=== PATIENT | female | born 1990 | race Caucasian/White ===

== ENCOUNTER 2017-02-13 15:25 | Emergency (ER) | payer BC ==
[2017-02-13 16:44] LABS: BLOOD, URINE MOD (NEG); COMMENT (UR) CULT NOT INDICATED; CULTURE IF INDICATED CULT NOT INDICATED; GLUCOSE,URINE NEG (NEG); KETONE, URINE NEG (NEG); MUCUS URINE FEW /lpf (OCC); NITRITE,URINE NEG (NEG); SQUAMOUS EPITHELIAL CELL URINE <1 /hpf (0-5); URINE COLOR LIGHT-YELLOW (YELLW/STRAW)
[2017-02-13 16:57] LABS: AMPHETAMINE, URINE NEG (NEG); BARBITURATES, URINE NEG (NEG); COCAINE, URINE NEG (NEG)
[2017-02-13] MEDS ORDERED: MEPERIDINE HCL 50 MG TAB PO PRN (17:00)
[2017-02-13] MEDS ORDERED: MEPERIDINE HCL 50 MG/ML VIAL IM ONE (17:00)
[2017-02-13] MEDS ORDERED: PROMETHAZINE INJ 25 MG/ML VIAL IM ONE (17:00)
--- NOTE | 2017-02-13 17:11 | PD ---
HPI Chief Complaint Left back pain Date Seen: Feb 13, 2017 Travel History International Travel<30 Days: No Contact w/Intl Traveler<30Days: No Known Affected Area: No History of Present Illness HPI Patient 26-year-old white female with 22 weeks with twins who is here on vacation from [place] and has developed left-sided severe back pain over the last 24 hours, she denies vaginal bleeding or leakage of fluid or contractions. Babies are very active. She states that she's had some pressure when she urinated over the last couple of days burning or pain per se, and she saw a little pink on the toilet paper when she wiped once. She has no history of kidney stones and kidney disease bladder infections though in her family there are kidney stones Para: 0 : 1 History Obstetric History Obstetric History with twins at 22 weeks now Social History Alcohol Use: No Tobacco Use: No Substance Abuse: No Allergies-Medications (Allergen,Severity, Reaction): Coded Allergies: Codeine (Verified Allergy, Severe, 02/13/17) Review of Systems General / Constitutional: No: Fever, Weight Gain, Chills, Other Eyes: No: Diploplia, Blurred Vision, Visual changes, Pain, Photophobia HENT: No: Headaches, Vertigo, Lightheadedness Cardiovascular: No: Irregular Rhythm, Chest Pain or Discomfort, Palpitations, Tachycardia, Syncope, Varicosities, Edema, Cyanosis Respiratory: No: Cough, Short of Breath, Other Gastrointestinal: No: Nausea, Vomiting, Diarrhea Genitourinary: Urgency, No: Decreased Urinary Output, Oliguria Musculoskeletal: Other, No: Limited ROM, Weakness, Cramping, Edema, Pain Skin: No Rash, No Itching, No Dryness, No Lumps, No Change in Pigmentation, No Change in Nails, No Alopecia, No Lesions Neurologic: No: Weakness, Dizziness, Syncope, Focal Abnormalities, Coordination Problem, Headache, Slurred Speech, Seizures Psychiatric: No: Depression, Suicidal Ideations, Homicidal Ideation Endocrine: No: Heat Intolerance, Cold Intolerance, Polydipsia, Polyuria, Other Physical Exam Narrative GENERAL: Well-nourished, well-developed patient. SKIN: Warm and dry. HEAD: Normocephalic and atraumatic. EYES: No scleral icterus. No injection or drainage. ENT: No nasal drainage noted. Mucous membranes pink. Airway patent. NECK: Supple, trachea midline. No JVD. CARDIOVASCULAR: Regular rate and rhythm without murmurs, gallops, or rubs. RESPIRATORY: Breath sounds equal bilaterally. No accessory muscle use. BREASTS: Bilateral exam showed no masses , no retractions, no nipple discharge. ABDOMEN/GI: Abdomen soft, minimally tender, bowel sounds present, no rebound, no guarding Gravid to [26-] weeks size Fundal Height: [26-] GENITOURINARY: External Genitalia: intact and normal in appearance BUS glands: [-] Cervix: [Closed-] Dilatation: [-Closed] Effacement: [-] Thick Station: [-] High Presentation: [-] Vertex vertex twins by ultrasound Membranes: [intact ] Uterine Contractions: [none-] FHT's: 135/140 EXTREMITIES: No cyanosis or edema. BACK: Nontender without obvious deformity. + L CVA tenderness. NEUROLOGICAL: Awake and alert. Motor and sensory grossly within normal limits. Five out of 5 muscle strength in all muscle groups. Normal speech. Data Data Orders Vital Signs (Adult) .ON ADMISSION (02/13/17 15:45) ^ Labor Status (02/13/17 15:45) Urinalysis - C+S If Indicated (02/13/17 15:45) Ob/Psych Drug Screen, Urine (02/13/17 15:45) Ob Poc Ultrasound (02/13/17 ) Meperidine Inj (Demerol Inj) (02/13/17 17:00) Promethazine Inj (Phenergan Inj) (02/13/17 17:00) Meperidine (Demerol) (02/13/17 17:00) Labs Bedside ultrasound done showing a twin gestation twin A is back down transverse 22 week 3 day size 487 g normal amniotic fluid with intervening membrane seen and photographed normal anatomy scan on twin A , twin B is 22 week 3 day size male, 497 g normal amniotic fluid, there is 2 placentas 1 anterior one posterior , cardiac motion of both babies within normal limits Laboratory Tests Test 02/13/17 15:35 Urine Color LIGHT-YELLOW Urine Turbidity CLEAR Urine pH 7.0 Urine Specific [place] 1.005 Urine Protein NEG Urine Glucose (UA) NEG Urine Ketones NEG Urine Occult Blood MOD Urine Nitrite NEG Urine Bilirubin NEG Urine Urobilinogen LESS THAN 2.0 Urine Leukocyte Esterase NEG Urine RBC 3 Urine WBC 3 Urine Squamous Epithelial <1 Cells Urine Mucus FEW Microscopic Urinalysis Comment CULT NOT INDICATED MDM Interpretation(s) This patient is 26-year-old white female at 22 weeks who is here on vacation from [place] and was planning to fly back home this afternoon when she developed left-sided back pain the approximately 24 hours ago, this is worsened over the last half-day and the presents for evaluation. Patient denies bleeding or leakage of fluid or contractions. On the monitor of there are no contractions noted. Ultrasound babies are within normal limits both babies concordant size, 2 placentas 1 anterior one posterior normal fluid volume and an and positive intervening membrane, normal anatomy scan on both babies and normal heart rates. Patient's exam cervix is closed high and thick, she is positive left-sided CVA tenderness none on the right, urinalysis positive for moderate blood but otherwise negative ., negative for infection, therefore patient likely has a small kidney stone she's tried to pass Plan Plan to give the patient the option to stay in the hospital for inpatient care and pain meds IV fluid etc. she would rather go home if possible and was given that option. We will give her IM Demerol Phenergan 50 mg 25 mg and oral Demerol 50 mg to use every 3-4 hours when necessary at home, she can use Tylenol as well. She needs to increase oral fluids to try to flush her system and bladder, bedrest and not to fly back to [place] today, she is to return if symptoms worsen or she begins to have fever at that time would diagnose her with pyelonephritis and treated accordingly Diagnosis Diagnosis: Primary Impression: Renal calculus, left Additional Impressions: Back pain affecting in second trimester Twin gestation in second trimester Disposition: 01 DISCHARGE HOME Condition: Stable Zhang Meyers II, MD Feb 13, 2017 17:11
[2017-02-18 09:50] LABS: BATH SALTS (MDPV) UR NEG (NEG); ECSTASY (MDMA) UR NEG (NEG); GABAPENTIN UR NEG (NEG); HEROIN (6-ACETYLMORPHINE) UR NEG (NEG); HYDROMORPHONE U NEG (NEG); K2 SPICE UR NEG (NEG); OBMETHADONE UR NEG (NEG); OXYCODONE (PERCODAN) NEG (NEG); PHENCYCLIDINE URINE NEG (NEG)
== END 2017-02-13 17:16 | disposition home or self-care (01) ==
LOC: HOBED 15:25
DX: O26.832 Pregnancy related renal disease, second trimester (principal); O26.892 Other specified pregnancy related conditions, second trimester; N20.0 Calculus of kidney; O30.002 Twin pregnancy, unspecified number of placenta and unspecified number of amniotic sacs, second trimester; Z3A.22 22 weeks gestation of pregnancy
CPT/HCPCS: 76815; 80307; 81001; 96372; 99284; G0481; J2175; J2550